=== PATIENT | female | born 2000 | race Caucasian/White ===

== ENCOUNTER 2021-10-25 20:39 | Inpatient (IN) | payer OTHER, SELFPAY ==
[2021-10-25] VITALS (9 sets, daily range): BP systolic 124–159; BP diastolic 64–97
[~2021-10-25] VITALS: Ht 170.2 cm; Wt 106.9 kg
[2021-10-25] MEDS ORDERED: ZOFR4TAB16 PO (21:17)
[2021-10-25] MEDS ORDERED: CALC500C15 PO (21:17)
[2021-10-25] MEDS ORDERED: HOME MED LIST COMPLETE! XX SCH (21:20)
[2021-10-25 22:43] LABS: CREATININE,RANDOM URINE 92.5 MG/DL; TOTAL PROTEIN,RANDOM URINE 28.2 MG/DL (0.0-12.0)
[2021-10-25 22:45] LABS: APPEARANCE, URINE HAZY (CLEAR); BACTERIA, URINE AUTO NEGATIVE (NEGATIVE); BILIRUBIN, URINE AUTO NEGATIVE (NEGATIVE); BLOOD, URINE BLOOD NEGATIVE (NEGATIVE); COLOR, URINE YELLOW (YELLOW); GLUCOSE, URINE (UA) AUTO NEGATIVE (NEGATIVE); KETONE, URINE AUTO NEGATIVE (NEGATIVE); LEUKOCYTE ESTERASE, URINE AUTO NEGATIVE (NEGATIVE); MUCUS, URINE SMALL (NEGATIVE); NITRITE, URINE AUTO NEGATIVE (NEGATIVE); PROTEIN, URINE AUTO 1+ mg/dL (NEGATIVE); RBC, URINE AUTO 0 /HPF (0-3); SPECIFIC GRAVITY URINE AUTO 1.011 (1.002-1.035); SQUAMOUS EPITHELIAL CELL UR AU 6 /HPF (0-6); UROBILINOGEN, URINE AUTO 0.2 mg/dL (0.0-2.0); WBC, URINE AUTO 1 /HPF (0-3)
[2021-10-25] MEDS ORDERED: hydrOXYzine 50 MG TAB PO ONE (22:45)
[2021-10-25 23:02] LABS: HEMATOCRIT 31.3 % (36.0-47.0); HEMOGLOBIN 9.1 g/dl (12.0-15.5); MEAN CORPUSCULAR HEMOGLOBIN 21.9 pg (27.0-33.0); MEAN CORPUSCULAR HGB CONC 29.1 g/dl (32.0-36.5); MEAN CORPUSCULAR VOLUME 75.4 fl (80.0-96.0); PLATELET COUNT, AUTOMATED 309 10^3/uL (150-450); RED BLOOD COUNT 4.15 10^6/uL (4.00-5.40); WHITE BLOOD COUNT 13.4 10^3/uL (4.0-10.0)
[2021-10-25 23:26] LABS: ALBUMIN 2.6 GM/DL (3.2-5.2); ALT/SGPT 16 U/L (12-78); BILIRUBIN,TOTAL 0.3 MG/DL (0.2-1.0); BLOOD UREA NITROGEN 9 MG/DL (7-18); CALCIUM LEVEL 8.5 MG/DL (8.5-10.1); CARBON DIOXIDE LEVEL 22 MEQ/L (21-32); CHLORIDE LEVEL 111 MEQ/L (98-107); CREATININE FOR GFR 0.85 MG/DL (0.55-1.30); GLOMERULAR FILTRATION RATE > 60.0 (>60); GLUCOSE, FASTING 76 MG/DL (70-100); LDH LACTATE DEHYDROGENASE 235 U/L (84-246); POTASSIUM SERUM 3.9 MEQ/L (3.5-5.1); SODIUM LEVEL 139 MEQ/L (136-145); TOTAL PROTEIN 6.1 GM/DL (6.4-8.2)
[2021-10-26] VITALS (47 sets, daily range): BP systolic 116–192; BP diastolic 58–110
[2021-10-26] MEDS ORDERED: BUTORPHANOL 2 MG/ML INJ (J0595) IV ONE (00:25)
[2021-10-26] MEDS ORDERED: PROMETHAZINE INJ 25 MG/ML VIAL (J2550) IV ONE (00:25)
[2021-10-26] MEDS: LR 1,000 ML IV SCH ×3 (01:00→11:59)
[2021-10-26] MEDS ORDERED: miSOPROStol 25MCG 1/4 TABLET PO SCH (01:00)
[2021-10-26] MEDS: miSOPROStol 25MCG 1/4 TABLET PO SCH ×2 (01:12→04:49)
[2021-10-26] MEDS ORDERED: ONDANSETRON 4MG/2ML VIAL IV PRN ×2 (04:05→16:50)
[2021-10-26] MEDS ORDERED: EPIDURAL COMMENT XX SCH (04:05)
[2021-10-26] MEDS ORDERED: LACTATED RINGER'S 1000 ML IV PRN (04:05)
[2021-10-26] MEDS ORDERED: EPIDURAL/PCA KEYS XX PRN (04:05)
[2021-10-26] MEDS ORDERED: REFRIGERATOR IV KEYS XX PRN (04:05)
[2021-10-26] MEDS ORDERED: diphenhydrAMINE 50MG/ML VIAL (J1200) IV PRN (04:05)
[2021-10-26] MEDS ORDERED: ePHEDrine SULFATE 25 MG/5 ML(5MG/ML) SYRINGE IV PRN (04:05)
[2021-10-26] MEDS ORDERED: NALOXONE INJ 0.4MG/1ML VIAL (J2310 PER 1MG) IV PRN (04:05)
[2021-10-26] MEDS ORDERED: FENTANYL 2MCG/ML ROPIVACAINE 0.2% IN 0.9% NACL 100ML IVBAG As Ordered ONE (04:08)
[2021-10-26] MEDS: FENTANYL/ROPIVACAINE/NACL BAG 100 ML EPIDURAL SCH ×2 (05:17→12:48)
[2021-10-26] MEDS ORDERED: OXYTOCIN DRIP 30 UNITS in IV 1 EA IV SCH ×3 (09:20→17:30)
[2021-10-26] MEDS ORDERED: OXYTOCIN 30 UNITS IN 0.9% NaCl 500ML IV BAG (J2590) As Ordered ONE (09:25)
[2021-10-26 16:13] LABS: CORD GAS ABE V -4.6; CORD GAS HCO3 V 19.8 MEQ/L; CORD GAS O2 SAT V 66.1 %; CORD GAS PCO2 V 35.5 mmHg; CORD GAS PH V 7.364 UNITS; CORD GAS PO2 V 25.1 mmHg; CORD GAS SBC V 19.9 MEQ/L; CORD GAS TCO2 V 20.9 MEQ/L
[2021-10-26] MEDS ORDERED: RHOGAM 300 MCG (1500 IU) INJ (J2790) IM SCH (16:50)
[2021-10-26] MEDS ORDERED: LR 1,000 ML IV SCH (16:50)
[2021-10-26] MEDS ORDERED: PROMETHAZINE 25 MG TAB PO PRN (16:50)
[2021-10-26] MEDS ORDERED: MEASLES,MUMPS,RUBELLA VACCINE INJ (MMR-II) (90707) SC SCH (16:50)
[2021-10-26] MEDS ORDERED: DOCUSATE SODIUM 100MG CAPSULE PO PRN (16:50)
[2021-10-26] MEDS: ACETAMINOPHEN 500 MG TAB PO SCH ×2 (18:20→23:07)
[2021-10-26] MEDS: DIBUCAINE 1% OINTMENT 30GM TOP PRN (18:21)
[2021-10-26] MEDS: IBUPROFEN 800 MG TAB PO SCH (18:38)
[2021-10-27] MEDS: IBUPROFEN 800 MG TAB PO SCH ×3 (01:14→17:19)
[2021-10-27] MEDS: ACETAMINOPHEN 500 MG TAB PO SCH ×4 (04:58→22:32)
[2021-10-27 06:00] VITALS: BP 139/91
[2021-10-27 07:56] LABS: HEMATOCRIT 28.4 % (36.0-47.0); HEMOGLOBIN 8.2 g/dl (12.0-15.5); MEAN CORPUSCULAR HGB CONC 28.9 g/dl (32.0-36.5); MEAN CORPUSCULAR VOLUME 76.3 fl (80.0-96.0); PLATELET COUNT, AUTOMATED 285 10^3/uL (150-450); RED BLOOD COUNT 3.72 10^6/uL (4.00-5.40); WHITE BLOOD COUNT 13.6 10^3/uL (4.0-10.0)
[2021-10-27] MEDS ORDERED: INFLUENZA QUADRIVALENT PF VACCINE 0.5ML SYRINGE IM ONE (09:00)
[2021-10-27] MEDS: PRENATAL VITAMINS CHEWABLE TABLET PO SCH (09:28)
[2021-10-27 18:29] VITALS: BP 143/82
[2021-10-28] MEDS: DIBUCAINE 1% OINTMENT 30GM TOP PRN ×2 (00:27→08:36)
[2021-10-28] MEDS: IBUPROFEN 800 MG TAB PO SCH ×2 (00:31→08:35)
[2021-10-28] MEDS: ACETAMINOPHEN 500 MG TAB PO SCH ×2 (04:38→11:30)
[2021-10-28 06:00] VITALS: BP 156/92
[2021-10-28] MEDS ORDERED: IBUP80TA PO (07:04)
[2021-10-28] MEDS ORDERED: ACET-683 PO (07:04)
[2021-10-28] MEDS: PRENATAL VITAMINS CHEWABLE TABLET PO SCH (08:35)
[2022-01-09] MEDS ORDERED: PRAZ1CAP PO (08:33)
[2022-01-09] MEDS ORDERED: CONC18TA14 PO (08:33)
[2022-01-09] MEDS ORDERED: TRAZ-257 PO (08:33)
[2022-01-09] MEDS ORDERED: FLUO40CA PO (08:33)
== END 2021-10-28 15:05 | disposition home or self-care (01) | DRG 560 ==
LOC: M LDO 20:39 → M LDI 10-26 00:11 → M OBS 10-26 18:05
PROVIDERS: ADMIT Obstetrics & Gynecology; ATTEND Obstetrics & Gynecology
PROC: 10E0XZZ Delivery of Products of Conception, External Approach (ICD-10-PCS; principal; 2021-10-26)
PROC: 0HQ9XZZ Repair Perineum Skin, External Approach (ICD-10-PCS; 2021-10-26)
PROC: 3E0P7GC Introduction of Other Therapeutic Substance into Female Reproductive, Via Natural or Artificial Opening (ICD-10-PCS; 2021-10-26)
DX: O14.04 Mild to moderate pre-eclampsia, complicating childbirth (principal); O69.82X0 Labor and delivery complicated by other cord entanglement, without compression, not applicable or unspecified; Z37.0 Single live birth; Z3A.38 38 weeks gestation of pregnancy; O70.0 First degree perineal laceration during delivery

== ENCOUNTER 2022-01-13 06:51 | Day surgery (SDC) | payer OTHER ==
[~2022-01-13] VITALS: Ht 170.2 cm; Wt 88.5 kg
[~2022-01-13 06:51] MED LIST: ACET-683 PO; ACETAMINOPHEN 650 MG SUPP PR ONE; CALC500C15 PO; CONC18TA14 PO; FLUO40CA PO; IBUP80TA PO; LR 1,000 ML IV ONE; PRAZ1CAP PO; TRAZ-257 PO; ZOFR4TAB16 PO
[2022-01-13 07:24] LABS: HEMATOCRIT 39.5 % (36.0-47.0); HEMOGLOBIN 11.3 g/dl (12.0-15.5); MEAN CORPUSCULAR HGB CONC 28.6 g/dl (32.0-36.5); MEAN CORPUSCULAR VOLUME 80.4 fl (80.0-96.0); PLATELET COUNT, AUTOMATED 385 10^3/uL (150-450); RED BLOOD COUNT 4.91 10^6/uL (4.00-5.40); WHITE BLOOD COUNT 5.4 10^3/uL (4.0-10.0)
[2022-01-13 07:49] LABS: BLOOD UREA NITROGEN 10 MG/DL (7-18); CALCIUM LEVEL 9.4 MG/DL (8.5-10.1); CARBON DIOXIDE LEVEL 25 MEQ/L (21-32); CHLORIDE LEVEL 108 MEQ/L (98-107); CREATININE FOR GFR 0.82 MG/DL (0.55-1.30); GLOMERULAR FILTRATION RATE > 60.0 (>60); GLUCOSE, FASTING 90 MG/DL (70-100); POTASSIUM SERUM 4.3 MEQ/L (3.5-5.1); SODIUM LEVEL 140 MEQ/L (136-145)
[2022-01-13 07:58] LABS: HCG, SERUM QUALITATIVE NEGATIVE (NEGATIVE)
[2022-01-13] MEDS ORDERED: ACETAMINOPHEN 650 MG SUPP As Ordered ONE (08:42)
[2022-01-13] MEDS ORDERED: HYDROmorphone HCL 2MG/ML 1ML VIAL As Ordered ONE (09:21)
[2022-01-13] MEDS ORDERED: MIDAZOLAM INJ 2MG/2ML VIAL (J2250 PER 1MG) As Ordered ONE (09:21)
[2022-01-13] MEDS ORDERED: KETOROLAC 60MG 2ML VIAL As Ordered ONE (09:21)
[2022-01-13] MEDS ORDERED: fentaNYL 100 MCG/2 ML INJECTION As Ordered ONE (09:21)
[2022-01-13] MEDS ORDERED: dexameTHASONE 4 MG/ML 1ML VIAL (J1100 PER 1MG) As Ordered ONE (09:21)
[2022-01-13] MEDS ORDERED: LIDOCAINE 2% 100MG/5ML SDV (FOR ANES.) As Ordered ONE (09:21)
[2022-01-13] MEDS ORDERED: ROCURONIUM BROMIDE 50 MG/5 ML VIAL As Ordered ONE (09:21)
[2022-01-13] MEDS ORDERED: propofoL 200 MG/20 ML VIAL As Ordered ONE (09:21)
[2022-01-13] MEDS ORDERED: SUGAMMADEX SODIUM 500 MG/5 ML VIAL (BRIDION) As Ordered ONE (09:21)
[2022-01-13] MEDS ORDERED: ONDANSETRON 4MG/2ML VIAL As Ordered ONE (09:21)
[2022-01-13] MEDS ORDERED: ePHEDrine SULFATE 25 MG/5 ML(5MG/ML) SYRINGE As Ordered ONE (09:23)
[2022-01-13] MEDS ORDERED: GLYCOPYRROLATE INJ 0.2 MG/ML 2 ML VIAL As Ordered ONE (09:37)
[2022-01-13] MEDS: BUPIVACAINE HCL 0.5% 10ML VIAL As Ordered ONE ×2 (09:50→09:53)
[2022-01-13] MEDS ORDERED: HYDROMORPHONE HCL 0.5 MG/ 0.5 ML SYRINGE (J1170 PER 1) IV PRN (10:40)
[2022-01-13] MEDS ORDERED: LR 1,000 ML IV SCH (10:40)
[2022-01-13] MEDS ORDERED: MIDAZOLAM INJ 2MG/2ML VIAL (J2250 PER 1MG) IV STA (10:40)
[2022-01-13] MEDS ORDERED: ONDANSETRON 4MG/2ML VIAL IV PRN (10:40)
[2022-01-13] MEDS ORDERED: oxyCODONE 5MG TAB PO PRN (10:40)
[2022-01-13] MEDS ORDERED: fentaNYL 100 MCG/2 ML INJECTION IV PRN (10:40)
[2022-01-13 11:19] VITALS: BP 145/88
== END 2022-01-13 11:55 | disposition home or self-care (01) ==
LOC: M SDC 06:51
PROVIDERS: ATTEND Obstetrics & Gynecology
DX: Z64.1 Problems related to multiparity (principal); F43.10 Post-traumatic stress disorder, unspecified; F32.A Depression, unspecified; F41.9 Anxiety disorder, unspecified; Z88.1 Allergy status to other antibiotic agents; Z88.8 Allergy status to other drugs, medicaments and biological substances; Z79.899 Other long term (current) drug therapy
CPT/HCPCS: 36415; 58661; 80048; 84703; 85027; 88302; J1100; J1170; J1885; J2250; J2405; J3010

== ENCOUNTER 2022-06-23 04:39 | Emergency (ER) | payer OTHER ==
[~2022-06-23] VITALS: Ht 170.2 cm; Wt 93.2 kg
[~2022-06-23 04:39] MED LIST changes: -ACETAMINOPHEN 650 MG SUPP PR ONE; -LR 1,000 ML IV ONE
[2022-06-23 05:47] LABS: BASO # 0.1 10^3/uL (0.0-0.2); BASO % 0.5 % (0.0-1.0); EOS # 0.3 10^3/uL (0.0-0.5); EOS % 2.5 % (0.0-3.0); HEMATOCRIT 35.1 % (36.0-47.0); HEMOGLOBIN 10.5 g/dl (12.0-15.5); LYMPH # 2.4 10^3/uL (1.5-5.0); LYMPH % 18.3 % (24.0-44.0); MEAN CORPUSCULAR HEMOGLOBIN 25.4 pg (27.0-33.0); MEAN CORPUSCULAR HGB CONC 29.9 g/dl (32.0-36.5); MONO # 0.8 10^3/uL (0.0-0.8); MONO % 5.9 % (2.0-8.0); NEUTROPHILS # 9.3 10^3/uL (1.5-8.5); NEUTROPHILS % 72.3 % (36.0-66.0); PLATELET COUNT, AUTOMATED 351 10^3/uL (150-450); RED BLOOD COUNT 4.13 10^6/uL (4.00-5.40); WHITE BLOOD COUNT 12.9 10^3/uL (4.0-10.0)
[2022-06-23 06:21] LABS: HCG, SERUM QUALITATIVE NEGATIVE (NEGATIVE)
[2022-06-23 06:27] LABS: BLOOD UREA NITROGEN 11 MG/DL (7-18); CARBON DIOXIDE LEVEL 25 mmol/L (20-29); CHLORIDE LEVEL 110 MEQ/L (98-107); CREATININE FOR GFR 0.83 MG/DL (0.55-1.30); GLOMERULAR FILTRATION RATE > 60.0 (>60); GLUCOSE, FASTING 112 MG/DL (70-100); POTASSIUM SERUM 4.3 MEQ/L (3.5-5.1); SODIUM LEVEL 142 MEQ/L (136-145)
[2022-06-23 06:28] LABS: ALBUMIN 3.8 GM/DL (3.2-5.2); ALT/SGPT 20 IU/L (0-32); BILIRUBIN,DIRECT < 0.1 MG/DL (0.0-0.2); BILIRUBIN,TOTAL 0.3 MG/DL (0.2-1.0); CALCIUM LEVEL 9.3 MG/DL (8.5-10.1); LIPASE 66 U/L (73-393); TOTAL PROTEIN 7.3 GM/DL (6.4-8.2)
[2022-06-23] MEDS ORDERED: KETOROLAC 30 MG/ML 1ML VIAL IV ONE (07:45)
[2022-06-23] MEDS ORDERED: ISOVUE-370 76% 100ML VIAL As Ordered ONE (09:10)
[2022-06-23] MEDS ORDERED: MORPHINE 2 MG/ML 1ML VIAL IV ONE (10:05)
[2022-06-23 12:26] LABS: HEMATOCRIT 31.7 % (36.0-47.0); HEMOGLOBIN 9.4 g/dl (12.0-15.5)
[2022-06-23] MEDS ORDERED: MORPHINE 2 MG/ML 1ML VIAL IV PRN (12:40)
[2022-06-23] MEDS ORDERED: NS 1,000 ML IV SCH (12:40)
[2022-06-23 16:22] LABS: HEMATOCRIT 31.4 % (36.0-47.0); HEMOGLOBIN 9.3 g/dl (12.0-15.5)
[2022-06-23 17:26] VITALS: BP 139/73
[2022-06-23] MEDS ORDERED: HYDR-4571 PO (17:57)
[2022-06-23] MEDS ORDERED: IBUP-1022 PO (17:59)
== END 2022-06-23 18:16 | disposition home or self-care (01) ==
LOC: M ED 04:39
DX: N83.292 Other ovarian cyst, left side (principal); Z88.1 Allergy status to other antibiotic agents; Z79.899 Other long term (current) drug therapy
CPT/HCPCS: 74177; 76705; 76830; 76856; 80048; 80076; 83605; 83690; 84703; 85014; 85018; 85025; 93976; 96361; 96374; 96375; 96376; 99284; J1885; J2270; Q9967

== ENCOUNTER 2023-05-14 11:42 | Emergency (ER) | payer OTHER ==
[~2023-05-14] VITALS: Ht 170.2 cm; Wt 95.4 kg
[~2023-05-14 11:42] MED LIST changes: +HYDR-4571 PO; +IBUP-1022 PO
[2023-05-14] MEDS ORDERED: DOXYCYCLINE HYCLATE 100MG TABLET PO ONE (13:05)
[2023-05-14] MEDS ORDERED: BACITRACIN OINTMENT 30GM TUBE TOP STA (13:06)
[2023-05-14] MEDS ORDERED: DOXY-443 PO (13:09)
[2023-05-14 13:21] VITALS: BP 145/85; TEMP 97.8; O2SAT 99
[2023-05-14] MEDS ORDERED: ONDANSETRON 4MG ORAL DISINTEGRATING TAB PO ONE (14:05)
== END 2023-05-14 13:20 | disposition home or self-care (01) ==
LOC: M ED 11:42
DX: S51.832A Puncture wound without foreign body of left forearm, initial encounter (principal); W54.0XXA Bitten by dog, initial encounter; Y92.89 Other specified places as the place of occurrence of the external cause; Y93.K9 Activity, other involving animal care; Y99.0 Civilian activity done for income or pay; Z88.0 Allergy status to penicillin; Z79.899 Other long term (current) drug therapy